=== PATIENT | female | born 1960 | race African-American/Black ===

== ENCOUNTER 2017-02-04 12:48 | Inpatient (IN) | payer MEDICAID, OTHER ==
[~2017-02-04] VITALS: Ht 154.9 cm; Wt 82.1 kg
[2017-02-04] MEDS ORDERED: ONDANSETRON HCL 4MG/2ML VIAL IV STA (13:01)
[2017-02-04] MEDS ORDERED: MORPHINE SULFATE 4 MG/ML CPJ (NOT FOR IM USE) IV STA (13:01)
[2017-02-04 14:09] LABS: EOSINOPHILS % 0.9 % (0.0-5.0); HEMATOCRIT. 40.7 % (36.0-48.0); HEMOGLOBIN. 13.9 g/dL (12.0-16.0); MEAN CORPUSCULAR HEMOGLOBIN 29.6 pg (28.0-32.0); MEAN CORPUSCULAR VOLUME 86.9 fL (81.0-99.0); MEAN PLATELET VOLUME 8.1 fl (7.4-10.4); MONOCYTES % 5.5 % (2.0-8.0); NEUTROPHILS % 34.6 % (40.0-76.0); PLATELET 197 x1000/uL (130-400); RED BLOOD CELL COUNT 4.68 mill/uL (4.2-5.4); RED CELL DISTRIBUTION WIDTH 13.6 % (11.6-14.6)
[2017-02-04 14:16] LABS: INR 1.1
[2017-02-04 14:27] LABS: CARBON DIOXIDE 25 mEq/L (21-32); CHLORIDE 109 mEq/L (98-107); TROPONIN I < 0.02 ng/mL (0.00-0.04)
[2017-02-04] MEDS ORDERED: ASPIRIN 325MG EC TABLET PO ONE (15:15)
[2017-02-04 16:30] VITALS: BP 128/78
[2017-02-04] MEDS ORDERED: MAGNESIUM/ALUMINUM HYDROXIDE/SIMETHICONE 30ML UDC PO PRN (17:00)
[2017-02-04] MEDS ORDERED: ONDANSETRON HCL 4MG/2ML VIAL IV PRN (17:00)
[2017-02-04] MEDS ORDERED: NITROGLYCERIN 0.4MG TABLET SL SL PRN (17:00)
[2017-02-04] MEDS ORDERED: GUAIFENESIN 200MG/10ML SUGAR FREE UDC PO PRN (17:00)
[2017-02-04] MEDS ORDERED: IPRATROPIUM/ALBUTEROL 0.5-3(2.5)MG/3ML NEB INH PRN (17:00)
[2017-02-04] MEDS ORDERED: DIPHENHYDRAMINE 50MG/ML VIAL IV PRN (17:00)
[2017-02-04] MEDS ORDERED: CLONIDINE 0.1MG TABLET PO PRN (17:00)
[2017-02-04] MEDS ORDERED: ACETAMINOPHEN 325MG TABLET PO PRN (17:00)
[2017-02-04] MEDS ORDERED: DOCUSATE SODIUM 100MG CAPSULE PO PRN (17:00)
[2017-02-04] MEDS ORDERED: LORAZEPAM 2MG/ML CPJ IV PRN (17:00)
[2017-02-04] MEDS ORDERED: KETOROLAC 15MG/ML VIAL IV PRN (17:10)
[2017-02-04] MEDS ORDERED: ENOXAPARIN 40MG/0.4ML SYR SUBCUT SCH (18:00)
[2017-02-04] MEDS ORDERED: DEXTROSE 50% WATER 50ML SYRINGE IV PRN (18:45)
[2017-02-04 20:26] VITALS: BP 105/61
[2017-02-04] MEDS ORDERED: ZOLPIDEM TARTRATE 5MG TABLET PO PRN (20:30)
[2017-02-04] MEDS ORDERED: NA PHOS,M-B/NA PHOS,DI-BA ENEMA 118ML PR PRN (20:30)
[2017-02-04] MEDS: FAMOTIDINE 20MG/2ML VIAL IV SCH (21:00)
[2017-02-04] MEDS: BLOOD SUGAR DIAGNOSTIC STRIP TEST SCH (21:00)
[2017-02-04] MEDS: SUCRALFATE 1 G/10 ML UDC PO SCH (21:07)
[2017-02-04] MEDS: INSULIN LISPRO 100 UNITS/ML SUBCUT SCH (22:26)
[2017-02-04 23:24] LABS: CREATINE KINASE 100 IU/L (26-192); CREATINE KINASE MB FRACTION 1.4 ng/mL (0.5-3.6); TROPONIN I < 0.02 ng/mL (0.00-0.04)
[2017-02-05 00:12] VITALS: BP 113/64
[2017-02-05 04:43] VITALS: BP 113/80
[2017-02-05 07:05] LABS: CREATINE KINASE 87 IU/L (26-192); CREATINE KINASE MB FRACTION 1.3 ng/mL (0.5-3.6); TROPONIN I < 0.02 ng/mL (0.00-0.04)
[2017-02-05] MEDS: BLOOD SUGAR DIAGNOSTIC STRIP TEST SCH ×2 (07:20→12:36)
[2017-02-05] MEDS: SUCRALFATE 1 G/10 ML UDC PO SCH ×2 (07:21→12:36)
[2017-02-05] MEDS: INSULIN LISPRO 100 UNITS/ML SUBCUT SCH ×2 (07:50→12:39)
[2017-02-05 08:00] VITALS: BP 116/80
[2017-02-05] MEDS: FAMOTIDINE 20MG/2ML VIAL IV SCH (08:47)
[2017-02-05] MEDS ORDERED: ASPIRIN 325MG EC TABLET PO SCH (09:00)
[2017-02-05 09:12] LABS: *AMPHETAMINES SCREEN URINE NEGATIVE (NEGATIVE); *BARBITURATES SCREEN URINE NEGATIVE (NEGATIVE); *BENZODIAZEPINES SCREEN URINE NEGATIVE (NEGATIVE); *COCAINE SCREEN URINE NEGATIVE (NEGATIVE); CANNABINOID URINE SCREEN NEGATIVE (NEGATIVE); METHADONE URINE SCREEN NEGATIVE (NEGATIVE); OPIATES URINE SCREEN NEGATIVE (NEGATIVE); PHENCYCLIDINE URINE SCREEN NEGATIVE (NEGATIVE)
== END 2017-02-05 14:00 | disposition home or self-care (01) | DRG 313 ==
LOC: ER 13:55 → 6WST 15:15 → ENRESERV 15:36
PROVIDERS: ADMIT Internal Medicine; ATTEND Internal Medicine
DX: R07.89 Other chest pain (principal); E11.9 Type 2 diabetes mellitus without complications; E66.9 Obesity, unspecified; I10 Essential (primary) hypertension; Z79.82 Long term (current) use of aspirin; Z82.49 Family history of ischemic heart disease and other diseases of the circulatory system; Z88.8 Allergy status to other drugs, medicaments and biological substances; Z79.899 Other long term (current) drug therapy; Z68.34 Body mass index [BMI] 34.0-34.9, adult
CPT/HCPCS: 36415; 71010; 80053; 80061; 80305; 82550; 82553; 82962; 83036; 83880; 84484; 85025; 85610; 93005; 93970; 99285; J1650; J1815; J1885; J2270; J2405; J3490

== ENCOUNTER 2022-03-11 12:34 | Emergency (ER) | payer MEDICAID, OTHER ==
[~2022-03-11] VITALS: Ht 165.1 cm; Wt 73.0 kg
[2022-03-11] MEDS ORDERED: SODIUM CHLORIDE 0.9% 1,000 ML IV ONE (13:15)
[2022-03-11 13:34] LABS: CLARITY URINE CLEAR (CLEAR); COLOR URINE YELLOW (YELLOW); KETONES URINE NEGATIVE (NEGATIVE); LEUKOCYTE ESTERASE URINE NEGATIVE (NEGATIVE); NITRITE URINE NEGATIVE (NEGATIVE); OCCULT BLOOD URINE NEGATIVE (NEGATIVE); PROTEIN URINE NEGATIVE (NEGATIVE); SPECIFIC GRAVITY URINE 1.017 (1.005-1.030); UROBILINOGEN URINE 0.2 E.U./dL (0.2-1.0)
[2022-03-11 14:02] LABS: BASOPHILS % 0.8 % (0.0-2.0); EOSINOPHILS % 1.1 % (0.0-5.0); HEMATOCRIT. 43.7 % (36.0-48.0); HEMOGLOBIN. 14.6 g/dL (12.0-16.0); LYMPHOCYTES % 35.4 % (20.0-50.0); MEAN CORPUSCULAR HEMOGLOBIN 29.4 pg (28.0-32.0); MEAN CORPUSCULAR VOLUME 88.3 fL (81.0-99.0); MEAN PLATELET VOLUME 7.8 fl (7.4-10.4); MONOCYTES % 7.8 % (2.0-8.0); NEUTROPHILS % 54.9 % (40.0-76.0); PLATELET 211 x1000/uL (130-400); RED BLOOD CELL COUNT 4.95 mill/uL (4.2-5.4); RED CELL DISTRIBUTION WIDTH 13.5 % (11.6-14.6)
[2022-03-11 14:09] LABS: CHLORIDE 108 mEq/L (98-107)
[2022-03-11 15:27] VITALS: BP 132/74
== END 2022-03-11 15:47 | disposition home or self-care (01) ==
LOC: ER 12:34
DX: R55 Syncope and collapse (principal); I11.9 Hypertensive heart disease without heart failure; Z90.710 Acquired absence of both cervix and uterus; Z88.3 Allergy status to other anti-infective agents
CPT/HCPCS: 36415; 80053; 81003; 83735; 84484; 85025; 93005; 96360; 99284; J7030